=== PATIENT | male | born 1955 | race Caucasian/White ===

== ENCOUNTER 2019-04-07 13:39 | Observation (INO) ==
--- NOTE | 2019-04-07 14:58 | Emergency Department Note ---
Disposition Clinical Impression: Left flank pain, Hypertensive emergency Hypertension Qualifiers: Hypertension type: unspecified Qualified Code(s): I10 - Essential (primary) hypertension Nausea and vomiting Qualifiers: Vomiting type: unspecified Vomiting Intractability: unspecified Qualified Code(s): R11.2 - Nausea with vomiting, unspecified Headache Qualifiers: Headache type: unspecified Headache chronicity pattern: unspecified pattern Intractability: not intractable Qualified Code(s): R51 - Headache Disposition: Admitted As Inpatient Referrals: NONE,PCP [Non-Partnered Physician] - Forms: ED Satisfaction Letter, Work/School Release Time of Disposition: 16:38 General Adult HPI - General Chief complaint: ED Abdominal Pain Stated complaint: vomiting,high blood pressure Time Seen by Provider: 04/07/19 14:38 Source: patient Mode of arrival: private vehicle Limitations: no limitations Nursing Notes Reviewed: Yes Vital Signs Reviewed: Yes - History of Present Illness HPI Narrative: Patient is a 64 year old male with PMHx including hypertension, type 2 diabetes mellitus insulin-dependent, presenting with chief complaint of elevated blood pressures, vomiting. The patient states for the past 2 weeks, he complains of left flank pain that is constant and sharp. Ibuprofen helps the pain somewhat. Pain worsens when he ambulates and moves around his left leg. He denies any dysuria, hematuria, abnormal bowel movements. He states his blood pressures are uncontrolled. 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 Last week, he went to [facility] for evaluation of his symptoms. He states they noted that he had blood in his urine, and they are unsure if he had a x-ray or CT done. They state it showed possible cyst on his left kidney and liver lesion. They were set up with a specialist however they state it was a training program and they were unable to get a hold of anyone. Patient states symptoms continue and this morning, at breakfast, he complains of a generalized pounding headache, had 2 episodes of nausea and nonbilious nonbloody emesis. He states he was feeling unwell. Denies any chest pain, shortness of breath, fevers or chills. He does complain of shortness of breath with exertion at times. He denies unilateral weakness or numbness, vision changes, slurred speech, confusion. At this time, the patient still complains of left flank pain. He states his nausea is resolved. His headache is improved. Pain Scale: 5 - Related Data Allergies Allergy/AdvReac Type Severity Reaction Status Date / Time No Known Allergies Allergy Verified 02/20/18 18:37 All systems ED: reviewed and negative except as stated. Review of Systems: As Per HPI Constitutional: Denies: fever, chills Eyes: Denies: vision change Cardiovascular: Denies: chest pain, palpitations Respiratory: Reports: dyspnea Gastrointestinal: Reports: abdominal pain, nausea, vomiting. Denies: diarrhea Genitourinary: Denies: dysuria, hematuria Musculoskeletal: Reports: back pain Neurological: Reports: headache. Denies: weakness, numbness Past Medical History - Past Medical History Attestation: Yes The following information was validated with the patient. Source: patient Medical history: Reports: diabetes, hyperlipidemia, hypertension Psychiatric history: Reports: no psych history - Social History Smoking Status: Former smoker Smokeless Tobacco Status: No Alcohol use: Reports: rarely Drug use: Reports: none Physical Exam - General Limitations: no limitations General appearance: alert, in no apparent distress - Head Head exam: atraumatic, normocephalic - Eye Eye exam: Present: normal appearance, PERRL, EOMI. Absent: nystagmus - ENT ENT exam: normal exam, normal oropharynx - Neck Neck exam: Present: normal inspection, trachea midline - Chest Chest inspection: Present: normal inspection, symmetric chest wall rise - Respiratory Respiratory exam: Present: normal lung sounds bilaterally. Absent: respiratory distress, wheezes - Cardiovascular Cardiovascular exam: Present: regular rate, normal rhythm, normal heart sounds, other (bilateral radial pulses equal) - Abdominal Exam Abdominal exam: Present: soft, Non-Tender. Absent: distention - Extremities Exam Extremities exam: Present: normal capillary refill. Absent: pedal edema, calf tenderness - Back Exam Back exam: Present: CVA tenderness (L) - Neurological Exam Neurological exam: Present: alert, oriented X3, CN II-XII intact. Absent: motor sensory deficit - Expanded Neurological Exam Speech: Present: fluid speech Cerebellar function: finger to nose: Normal Motor strength - LUE: 5/5 Motor strength - RUE: 5/5 Motor strength - LLE: 5/5 Motor strength - RLE: 5/5 Upper motor neuron exam: briana neglect: Absent bilaterally, pronator drift: Absent bilaterally Sensory exam upper extremity: light touch: Normal Sensory exam lower extremity: light touch: Normal - Psychiatric Psychiatric exam: Present: normal affect, normal mood - Skin Skin exam: Present: warm, dry. Absent: diaphoresis, pallor Course Vital Signs Temperature 98.2 F 04/07/19 13:50 Pulse Rate 68 04/07/19 13:50 Respiratory Rate 16 04/07/19 13:50 Blood Pressure 218/101 04/07/19 13:50 O2 Sat by Pulse Oximetry 95 04/07/19 13:50 Temperature 98.2 F 04/07/19 14:48 Pulse Rate 68 04/07/19 16:05 Respiratory Rate 16 04/07/19 16:05 Blood Pressure 167/84 04/07/19 16:05 O2 Sat by Pulse Oximetry 96 04/07/19 16:05 Oxygen Delivery Oxygen Delivery Room Air Medical Decision Making - MDM Narrative Medical decision making narrative: Patient is presenting with a 2 week history of left flank pain that is reproducible to palpation worsens with ambulation when he elevates his left leg. He does have significantly elevated blood pressures. He had 2 episodes of nonbilious nonbloody emesis and was not feeling well this morning. Denies chest pain or shortness of breath. He does have some shortness of breath with exertion which is new for him. We will obtain CBC, BMP, hepatic panel, t roponin, urinalysis. We will check chest x-ray. We will also obtain a CT abdomen and pelvis without IV or oral contrast to evaluate for any kidney stones. There was a reported history of a cyst on his kidney and liver at an outside facility. Family does not want to wait to obtain facilities and would like to repeat the CT scan as they are unsure if the patient had a CT or x-ray done. We will also give the patient hydralazine 10 mg IV as his blood pressures are significantly elevated. Will also obtain CT head without contrast as patient had headache and vomiting with the elevated blood pressures. 15:50 Labs and imaging reviewed. No acute intracranial abnormality, no acute abdominal abnormality. We will give the patient a lidocaine patch for his left low back pain and morphine for his headache. Headache could be related to the pain and elevated blood pressures and elevated blood pressures could be secondary to the pain. However he still is uncontrolled with blood pressures greater than 200 over 100s. We will admit the patient for further blood pressure management and symptomatic hypertension. No evidence of end organ ischemia. Hospitalist paged for admission. 16:[address] Santiago, hospitalist accepts admission for hypertensive emergency - Medical Records Medical records reviewed: Yes I reviewed the patient's medical records. - Lab Data Lab results reviewed: Yes I reviewed the patient's lab results. Result diagrams: 04/07/19 14:55 04/07/19 14:55 Lab Results 04/07/19 04/07/19 04/07/19 Range/Units 14:55 14:55 15:00 WBC 8.7 (4.3-11.1) K/mcL RBC 5.79 H (4.19-5.50) M/mcL Hgb 16.5 (12.9-16.9) g/dL Hct 49.9 (37.5-50.1) % MCV 86.2 (83.0-100.0) fL MCH 28.5 (28.0-33.3) pg MCHC 33.1 (31.6-35.5) g/dL RDW 12.9 (11.5-14.5) % Plt Count 284 (140-400) K/mcL MPV 9.5 (9.4-12.4) fL Immature Gran % 0.2 (0-4) % Seg Neutrophils % 71.1 % Lymphocytes % 20.6 % Monocytes % 5.7 % Eosinophils % 1.8 % Basophils % 0.6 % Neutrophils # 6.2 (1.6-8.9) K/mcL Lymphocytes # 1.8 (0.6-4.6) K/mcL Monocytes # 0.5 (0.0-1.3) K/mcL Eosinophils # 0.2 (0.0-0.6) K/mcL Basophils # 0.1 (0.0-0.2) K/mcL Sodium 139 (136-145) mEq/L Potassium 3.7 (3.5-5.1) mEq/L Chloride 106 (98-107) mEq/L Carbon Dioxide 27 (23-29) mEq/L BUN 16 (8-23) mg/dL Creatinine 0.93 (0.70-1.30) mg/dL Est GFR ( Amer) > 60 (> 60) Est GFR (Non-Af Amer) > 60 (> 60) BUN/Creatinine Ratio 17 (6-26) Glucose 105 (70-105) mg/dL Calculated Osmolality 290 (280-300) Calcium 9.3 (8.6-10.3) mg/dL Total Bilirubin 0.8 (0.3-1.0) mg/dL Direct Bilirubin 0.2 (0.0-0.2) mg/dL Indirect Bilirubin 0.6 (0.0-1.2) mg/dL AST 14 (13-39) Units/L ALT 17 (7-52) Units/L Alkaline Phosphatase 70 (34-104) Units/L Troponin I < 0.03 (< 0.04) ng/mL Serum Total Protein 7.4 (6.4-8.9) g/dL Albumin 4.3 (3.5-5.7) g/dL Globulin 3.1 (2.4-3.5) g/dL Albumin/Globulin Ratio 1.4 (1.1-2.2) Lipase 31 (11-82) Units/L Urine Color Yellow (Yellow) Urine Clarity Clear (Clear) Urine pH 5.5 (5.0-8.0) pH Units Ur Specific [place] 1.027 H (1.010-1.025) Urine Protein 30 H (Neg-Trace) mg/dL Urine Glucose (UA) Normal (Normal) mg/dL Urine Ketones Negative (Negative) mg/dL Urine Blood Negative (Negative) Urine Nitrite Negative (Negative) Urine Bilirubin Negative (Negative) Urine Urobilinogen Normal (Normal) mg/dL Ur Leukocyte Esterase Negative (Negative) Urine Microscopic RBC 0-3 (0-3) per hpf Urine Microscopic WBC 0-3 (0-3) per hpf Ur Squamous Epith Cells Many H (None-Few) per lpf Urine Bacteria None Seen (None-Few) per hpf Hyaline Casts None Seen (None-Few) per lpf Ur Culture Indicated? NO (NO) - Radiology Data Radiology results reviewed: Yes I reviewed the patient's radiology results. Abdomen/Pelvis CT 04/07/19 14:53 IMPRESSION: No acute process demonstrated D/ / Kranthi Cook MD / Kranthi Cook MD Interpreting Provider: Kranthi Cook MD Chest X-Ray 04/07/19 14:54 IMPRESSION: No acute process. D/ / Eb Solis MD / Eb Solis MD Interpreting Provider: Eb Solis MD Head CT 04/07/19 15:03 IMPRESSION: No acute intracranial abnormality. Extensive chronic small vessel disease. D/ / Teddy Mazariegos MD / Teddy Mazariegos MD Interpreting Provider: Teddy Mazariegos MD - EKG Data EKG #1 EKG attestation: Yes I reviewed and interpreted this EKG. EKG results narrative: EKG obtained at 1450 shows sinus rhythm with heart rate 66, AR interval 170, QRS duration 84, QTC 417, no ST elevation or depression.
[2019-04-07 15:15] LABS: Basophils # 0.1 K/mcL (0.0-0.2); Basophils % 0.6 %; Eosinophils # 0.2 K/mcL (0.0-0.6); Eosinophils % 1.8 %; Hematocrit 49.9 % (37.5-50.1); Hemoglobin 16.5 g/dL (12.9-16.9); Immature Granulocytes % 0.2 % (0-4); Lymphocytes # 1.8 K/mcL (0.6-4.6); Lymphocytes % 20.6 %; Mean Corpuscular HGB Conc 33.1 g/dL (31.6-35.5); Mean Corpuscular Hemoglobin 28.5 pg (28.0-33.3); Mean Corpuscular Volume 86.2 fL (83.0-100.0); Mean Platelet Volume 9.5 fL (9.4-12.4); Monocytes # 0.5 K/mcL (0.0-1.3); Monocytes % 5.7 %; Neutrophils # 6.2 K/mcL (1.6-8.9); Platelet Count 284 K/mcL (140-400); Red Blood Count 5.79 M/mcL (4.19-5.50); Red Cell Distribution Width 12.9 % (11.5-14.5); Segmented Neutrophils % 71.1 %; White Blood Count 8.7 K/mcL (4.3-11.1)
[2019-04-07 15:26] LABS: Bacteria,Urine None Seen per hpf (None-Few); Bilirubin,Urine Negative (Negative); Blood,Urine Negative (Negative); Clarity,Urine Clear (Clear); Color,Urine Yellow (Yellow); Glucose,Urine (UA) Normal (Normal); Hyaline Casts,Urine None Seen per lpf (None-Few); Ketones,Urine Negative (Negative); Leukocyte Esterase,Urine Negative (Negative); Nitrite,Urine Negative (Negative); PH,Urine 5.5 pH Units (5.0-8.0); Protein,Urine 30 mg/dL (Neg-Trace); RBC,Urine 0-3 per hpf (0-3); Specific Gravity,Urine 1.027 (1.010-1.025); Squamous Epithelial Cell,Urine Many per lpf (None-Few); Urobilinogen,Urine Normal (Normal); WBC,Urine 0-3 per hpf (0-3)
[2019-04-07 15:28] LABS: Alanine Aminotransferase 17 Units/L (7-52); Albumin 4.3 g/dL (3.5-5.7); Albumin/Globulin Ratio 1.4 (1.1-2.2); Alkaline Phosphatase 70 Units/L (34-104); Aspartate Amino Transferase 14 Units/L (13-39); BUN/Creatinine Ratio 17 (6-26); Bilirubin,Direct 0.2 mg/dL (0.0-0.2); Bilirubin,Indirect 0.6 mg/dL (0.0-1.2); Bilirubin,Total 0.8 mg/dL (0.3-1.0); Blood Urea Nitrogen 16 mg/dL (8-23); Calcium 9.3 mg/dL (8.6-10.3); Carbon Dioxide 27 mEq/L (23-29); Chloride 106 mEq/L (98-107); Globulin 3.1 g/dL (2.4-3.5); Glucose 105 mg/dL (70-105); Lipase 31 Units/L (11-82); Osmolality,Calculated 290 (280-300); Potassium 3.7 mEq/L (3.5-5.1); Sodium 139 mEq/L (136-145); Total Protein 7.4 g/dL (6.4-8.9); Troponin I < 0.03 ng/mL (< 0.04); eGFR For African Americans > 60 (> 60); eGFR For Non-African Americans > 60 (> 60)
[2019-04-07] MEDS ORDERED: Morphine Sulfate 2 MG/ML SYRINGE IVP ONE (15:44)
--- NOTE | 2019-04-07 16:00 | Emergency Department Note ---
Disposition Clinical Impression: Left flank pain Hypertension Qualifiers: Hypertension type: unspecified Qualified Code(s): I10 - Essential (primary) hypertension Nausea and vomiting Qualifiers: Vomiting type: unspecified Vomiting Intractability: unspecified Qualified Code(s): R11.2 - Nausea with vomiting, unspecified Headache Qualifiers: Headache type: unspecified Headache chronicity pattern: unspecified pattern Intractability: not intractable Qualified Code(s): R51 - Headache Disposition: Admitted As Inpatient Forms: ED Satisfaction Letter, Work/School Release Time of Disposition: 16:00 General Adult HPI - General Chief complaint: ED Abdominal Pain Stated complaint: vomiting,high blood pressure Time Seen by Provider: 04/07/19 14:38 Source: patient Mode of arrival: private vehicle Limitations: no limitations - History of Present Illness Pain Scale: 5 - Related Data Allergies Allergy/AdvReac Type Severity Reaction Status Date / Time No Known Allergies Allergy Verified 02/20/18 18:37 Constitutional: Denies: fever, chills Eyes: Denies: vision change Cardiovascular: Denies: chest pain, palpitations Respiratory: Reports: dyspnea Gastrointestinal: Reports: abdominal pain, nausea, vomiting. Denies: diarrhea Genitourinary: Denies: dysuria, hematuria Musculoskeletal: Reports: back pain Neurological: Reports: headache. Denies: weakness, numbness Past Medical History - Past Medical History Medical history: Reports: diabetes, hyperlipidemia, hypertension Psychiatric history: Reports: no psych history - Social History Smoking Status: Former smoker Smokeless Tobacco Status: No Alcohol use: Reports: rarely Drug use: Reports: none Physical Exam - General Limitations: no limitations General appearance: alert, in no apparent distress Course Vital Signs Temperature 98.2 F 04/07/19 13:50 Pulse Rate 68 04/07/19 13:50 Respiratory Rate 16 04/07/19 13:50 Blood Pressure 218/101 04/07/19 13:50 O2 Sat by Pulse Oximetry 95 04/07/19 13:50 Temperature 98.2 F 04/07/19 14:48 Pulse Rate 68 04/07/19 14:48 Respiratory Rate 16 04/07/19 14:48 Blood Pressure 196/99 04/07/19 15:44 O2 Sat by Pulse Oximetry 95 04/07/19 14:48 Oxygen Delivery Oxygen Delivery Room Air Medical Decision Making - Lab Data Result diagrams: 04/07/19 14:55 04/07/19 14:55 Lab Results 04/07/19 04/07/19 04/07/19 Range/Units 14:55 14:55 15:00 WBC 8.7 (4.3-11.1) K/mcL RBC 5.79 H (4.19-5.50) M/mcL Hgb 16.5 (12.9-16.9) g/dL Hct 49.9 (37.5-50.1) % MCV 86.2 (83.0-100.0) fL MCH 28.5 (28.0-33.3) pg MCHC 33.1 (31.6-35.5) g/dL RDW 12.9 (11.5-14.5) % Plt Count 284 (140-400) K/mcL MPV 9.5 (9.4-12.4) fL Immature Gran % 0.2 (0-4) % Seg Neutrophils % 71.1 % Lymphocytes % 20.6 % Monocytes % 5.7 % Eosinophils % 1.8 % Basophils % 0.6 % Neutrophils # 6.2 (1.6-8.9) K/mcL Lymphocytes # 1.8 (0.6-4.6) K/mcL Monocytes # 0.5 (0.0-1.3) K/mcL Eosinophils # 0.2 (0.0-0.6) K/mcL Basophils # 0.1 (0.0-0.2) K/mcL Sodium 139 (136-145) mEq/L Potassium 3.7 (3.5-5.1) mEq/L Chloride 106 (98-107) mEq/L Carbon Dioxide 27 (23-29) mEq/L BUN 16 (8-23) mg/dL Creatinine 0.93 (0.70-1.30) mg/dL Est GFR ( Amer) > 60 (> 60) Est GFR (Non-Af Amer) > 60 (> 60) BUN/Creatinine Ratio 17 (6-26) Glucose 105 (70-105) mg/dL Calculated Osmolality 290 (280-300) Calcium 9.3 (8.6-10.3) mg/dL Total Bilirubin 0.8 (0.3-1.0) mg/dL Direct Bilirubin 0.2 (0.0-0.2) mg/dL Indirect Bilirubin 0.6 (0.0-1.2) mg/dL AST 14 (13-39) Units/L ALT 17 (7-52) Units/L Alkaline Phosphatase 70 (34-104) Units/L Troponin I < 0.03 (< 0.04) ng/mL Serum Total Protein 7.4 (6.4-8.9) g/dL Albumin 4.3 (3.5-5.7) g/dL Globulin 3.1 (2.4-3.5) g/dL Albumin/Globulin Ratio 1.4 (1.1-2.2) Lipase 31 (11-82) Units/L Urine Color Yellow (Yellow) Urine Clarity Clear (Clear) Urine pH 5.5 (5.0-8.0) pH Units Ur Specific [place] 1.027 H (1.010-1.025) Urine Protein 30 H (Neg-Trace) mg/dL Urine Glucose (UA) Normal (Normal) mg/dL Urine Ketones Negative (Negative) mg/dL Urine Blood Negative (Negative) Urine Nitrite Negative (Negative) Urine Bilirubin Negative (Negative) Urine Urobilinogen Normal (Normal) mg/dL Ur Leukocyte Esterase Negative (Negative) Urine Microscopic RBC 0-3 (0-3) per hpf Urine Microscopic WBC 0-3 (0-3) per hpf Ur Squamous Epith Cells Many H (None-Few) per lpf Urine Bacteria None Seen (None-Few) per hpf Hyaline Casts None Seen (None-Few) per lpf Ur Culture Indicated? NO (NO) Attestation Statement - Attestation Attestation: I examined this patient and my medical decision-making was reviewed with the Resident Physician. I agree with the documented findings, disposition and treatment plan as described except to the extent set forth below. 64-year-old male since emergency room for concerns for elevated blood pressure as well as left flank pain. CT of the left flank pain for the past couple weeks. Radiates to the left leg. Seems to be more musculoskeletal in nature. No abdominal pain. No urinary issues at this time. Denies hematuria associated with flank pain. He also has had elevated blood pressures greater than 200. This is in turn causing him to have some headaches associated with some nausea. CT head negative. CT abdomen pelvis negative. Patient was given hydralazine fo r the blood pressure as well as some pain medication. Patient will need to be admitted for blood pressure control issues. EKG documentation was done by the resident but reviewed by me and agree with all findings and documentation.
--- NOTE | 2019-04-07 17:18 | Internal Med History&Physical ---
Date of Encounter: 04/07/19 Time of Encounter: 17:18 Internal Medicine - H&P: HPI Chief complaint: headache, vomiting Admitted From: Home Plans for Post Hospital Care: Home History of present illness: Mr. Greene is a 64 year old male with past medical history of diabetes on insulin, hypertension who has not seen her primary care physician's for a long time usually getting his medications refilled through after hours doctors came in with complain of headache when he woke up this morning associated with vomiting. He denied visual symptoms any weakness numbness tingling facial asymmetry difficulty speaking swallowing leg weakness. Denies any chest pain. Did have some difficulty breathing with more than usual exertion. Does have some back pain in left lower back over his iliac crest. Denies any trauma. Previously worried about kidney stones however had CT done which did not show any kidney stones but does demonstrate right-sided kidney cyst. Denies any blood in urine. Denies abdominal pain bowel or bladder difficulties. He does have trace edema is usually which has not increased. Denies any nighttime difficulty breathing. Headache is frontal in nature and behind his eyes. Denies any watering of eyes or redness associated with it. Denies previous similar episodes. He had associated vomiting few episodes along with the headache. Patient was related in ER with labs being mostly unremarkable. Patient had chest x-ray, head CT and abdominal CT. Head CT was unremarkable except chronic changes, chest x-ray was unremarkable, CT abdomen showed right renal cyst, degenerative disc disease. Patient was given 1 dose of hydralazine with blood pressure improved to 160 systolic. Admission was requested for further management. Patient was admitted in ER amble mention his was confirmed. Blood pressure on my evaluation was 190 systolic. He had minimal headache at the time. Denied any chest pain. He could not remember his blood pressure medication except clonidine and lisinopril. He does mention he is compliant with his medications. He takes metformin and insulin for diabetes and chol esterol pill. He could not remember her medications. Relays last A1c was 8. Denies any allergies. CODE STATUS is confirmed as full code. Past Med Surg Social Fam HX - Past Medical History Medical history: diabetes, hyperlipidemia, hypertension Psychiatric history: no psych history - Past Surgical History Additional surgical history: knee surgery - Social History Smoking Status: Former smoker Smokeless Tobacco Status: No Alcohol use: rarely Drug use: none - Additional Family History Additional family history: reviewed and non-contributory Internal Medicine - H&P: Meds Unable To Obtain [Unable to Obtain] 04/07/19 [History] Allergy/AdvReac Type Severity Reaction Status Date / Time No Known Allergies Allergy Verified 02/20/18 18:37 All Systems PM: A 10-system review of systems was performed and is negative for pertinent findings except as documented above in the HPI. - Constitutional Vitals: Temp Pulse Resp BP Pulse Ox 98.2 F 68 16 167/84 96 04/07/19 14:48 04/07/19 16:05 04/07/19 16:05 04/07/19 16:05 04/07/19 16:05 Exam: Constitutional: Vitals as noted. Conversant. No Apparent Distress. obese, anxious Eyes : Sclera white, conjunctiva clear, no lid lag, PEARLA. ENT : Grossly normal hearing. Oropharyngeal exam unremarkable. Moist mucus membranes. No JVD, no cervical lymphadenopathy. no thyromegaly or mass. Respiratory : Clear to auscultation bilaterally. No accessory muscle use, rales, rhonchi or wheezes Cardiovascular : RRR, +S1, +S2. no murmur, gallop, rubs. No chest wall tender ness GI/Abdominal : Soft, Non-tender, Non-distended, normal bowel sounds, soft, no peritoneal signs. no orgenomegaly or mass appreciated. no hernia. Musculoskeletal: contracture on rt hand. trace edema or cyanosis. pulses palpable and symmetrical in UE/LE. no calf tenderness. mild tenderness over lt post iliac crest Neurological: AO X3, CN II-XII grossly intact, grossly normal motor and sensory exam. Skin: No skin rash, lesions or ulcers noted. Pych: anxious Internal Med - H&P Results - Labs CBC & Chem 7: 04/07/19 14:55 04/07/19 14:55 Labs: Short CBC 04/07/19 Range/Units 14:55 WBC 8.7 (4.3-11.1) K/mcL Hgb 16.5 (12.9-16.9) g/dL Hct 49.9 (37.5-50.1) % Plt Count 284 (140-400) K/mcL Neutrophils # 6.2 (1.6-8.9) K/mcL BMP 04/07/19 14:55 Sodium 139 Potassium 3.7 Chloride 106 Carbon Dioxide 27 BUN 16 Creatinine 0.93 Glucose 105 Calcium 9.3 Cardiac Enzymes 04/07/19 Range/Units 14:55 Troponin I < 0.03 (< 0.04) ng/mL Liver Function 04/07/19 Range/Units 14:55 Total Bilirubin 0.8 (0.3-1.0) mg/dL Direct Bilirubin 0.2 (0.0-0.2) mg/dL AST 14 (13-39) Units/L ALT 17 (7-52) Units/L Alkaline Phosphatase 70 (34-104) Units/L Albumin 4.3 (3.5-5.7) g/dL Urine 04/07/19 Range/Units 15:00 Urine Color Yellow (Yellow) Urine Clarity Clear (Clear) Urine pH 5.5 (5.0-8.0) pH Units Ur Specific [place] 1.027 H (1.010-1.025) Urine Protein 30 H (Neg-Trace) mg/dL Urine Glucose (UA) Normal (Normal) mg/dL - EKG Data -: EKG Interpreted by Myself EKG shows normal: sinus rhythm Rate: normal - Impressions ITS Impressions Abdomen/Pelvis CT 04/07/19 14:53 IMPRESSION: No acute process demonstrated D/ / Kranthi Cook MD / Kranthi Cook MD Interpreting Provider: Kranthi Cook MD Chest X-Ray 04/07/19 14:54 IMPRESSION: No acute process. D/ / Eb Solis MD / Eb Solis MD Interpreting Provider: Eb Solis MD Head CT 04/07/19 15:03 IMPRESSION: No acute intracranial abnormality. Extensive chronic small vessel disease. D/ / Teddy Mazariegos MD / Teddy Mazariegos MD Interpreting Provider: Teddy Mazariegos MD - Assessment and Plan (1) Hypertensive urgency Current Visit: Yes Status: Acute Assessment and plan: Headache possibly due to elevated blood pressure. Head CT unremarkable. Slightly improved after hydralazine. EKG without any ischemic changes. Troponin unremarkable. Denies any chest pain. We will confirm home medications. Continue hydralazine 10 every 6 when necessary for SBP more than 160. Will resume lisinopril 5 mg for now. We will likely DC clonidine on discharge. (2) Headache Current Visit: Yes Status: Acute Assessment and plan: Improved now. Continue blood pressure management as above. Qualifiers: Headache type: tension-type Headache chronicity pattern: unspecified pattern Intractability: not intractable Qualified Code(s): G44.209 - Tension-type headache, unspecified, not intractable (3) Hypertension Current Visit: Yes Status: Acute Assessment and plan: As above. Qualifiers: Hypertension type: essential hypertension Qualified Code(s): I10 - Essential (primary) hypertension (4) Left flank pain Current Visit: Yes Status: Acute Assessment and plan: No history of trauma. Abdominal CT unremarkable. Appears to be musculoskeletal. Continue Lidoderm patch. - Time Spent With Patient Total time spent is greater than 50% in coordination of care (as documented) at patient's floor/unit and/or counseling patient:
[2019-04-07] MEDS ORDERED: Ondansetron 4 MG/2 ML VIAL IVP ONE (19:24)
[2019-04-07] MEDS: Acetaminophen 325 MG TABLET PO PRN (20:19)
--- NOTE | 2019-04-07 23:34 | Event Note ---
Date of Encounter: 04/07/19 Time of Encounter: 20:00 Notified by nurse of patient having an episode where she reports the patient slumped over in bed and did not respond to her lasting only seconds. Per nurse patient was immediately back to baseline after episode. Vitals stable and blood pressure improved from initial presentation. On telemetry during time of event but no arrythmia or alarms listed. Assessed patient at bedside. Patient and family state he had a similar episode around 2 months ago but they did not seek any evaluation. Had CT of head on admission. Will order echocardiogram, carotid dopplers, and orthostatic vitals. Continue telemetry and nurse to notify of any changes.
[2019-04-08] MEDS: Acetaminophen 325 MG TABLET PO PRN ×2 (04:48→09:48)
[2019-04-08] MEDS ORDERED: Perflutren Lipid Microsphere 1.3 ML in 0.9 % Sodium Chloride 8.7 ML IVP ONE (09:07)
[2019-04-08] MEDS ORDERED: Perflutren Lipid Microsphere 2 ML VIAL ONE (09:11)
[2019-04-08] MEDS: Lisinopril 20 MG TABLET PO SCH (09:45)
[2019-04-08] MEDS: amLODIPine 5 MG TABLET PO SCH (09:45)
[2019-04-08] MEDS ORDERED: cloNIDine HCl 0.1 MG TABLET PO ONE (09:56)
[2019-04-08] MEDS ORDERED: Ondansetron 4 MG/2 ML VIAL IVP PRN (10:23)
[2019-04-08] MEDS ORDERED: cloNIDine HCl 0.1 MG TABLET PO PRN (12:24)
--- NOTE | 2019-04-08 12:28 | Internal Med Progress Note ---
Hospitalist Progress Note - Encounter Date of Encounter: 04/08/19 Time of Encounter: 10:00 - Subjective Interval History: Pt was seen and examined at bed side today. He still have headaches. He denied any CP / SOB. His BP still uncontrolled in 200's now. - Exam Vitals: Temp Pulse Resp BP Pulse Ox 98.4 F 78 20 176/84 95 04/08/19 11:19 04/08/19 11:19 04/08/19 11:19 04/08/19 11:19 04/08/19 11:19 Exam: Gen: Alert, awake, Oriented to time,place and person Chest: Diminished breath sounds B/L, No wheezing, No crackles, No rales Heart: S1S2+ RRR No murmurs Abd: Soft, NT, BS +, No organomegaly Ext: No edema, pulses are palpable, No calf tenderness Neuro : No acute focal neuro deficits noticed Skin: No rash. - Assessment and Plan (1) Hypertensive urgency Current Visit: Yes Status: Acute Assessment and Plan: This morning his BP was so high in 200's He had vomitings with IV hydralazine so held Hydralazine Started him on Metoprolol 50mg BID , Norvasc 10mg and Lisinopril 20 mg daily. Also gave him Clonidine 0.1mg PRN.. His BP now better with in 170's cont on tele His CT of Head did not show any acute ICH His Echo showed LVEF 55-60%, Moderate LV hypertrophy (2) Headache Current Visit: Yes Status: Acute Assessment and Plan: Due to uncontrolled BP cont supportive care (3) Left flank pain Current Visit: Yes Status: Acute Assessment and Plan: resolved cont Lidoderm - Time Spent with Patient Total time spent is greater than 50% in coordination of care (as documented) at patient's floor/unit and/or counseling patient: Internal Medicine: Result - Labs CBC & Chem 7: 04/07/19 14:55 04/07/19 14:55 Labs: Short CBC 04/07/19 Range/Units 14:55 WBC 8.7 (4.3-11.1) K/mcL Hgb 16.5 (12.9-16.9) g/dL Hct 49.9 (37.5-50.1) % Plt Count 284 (140-400) K/mcL Neutrophils # 6.2 (1.6-8.9) K/mcL BMP 04/07/19 14:55 Sodium 139 Potassium 3.7 Chloride 106 Carbon Dioxide 27 BUN 16 Creatinine 0.93 Glucose 105 Calcium 9.3 Cardiac Enzymes 04/07/19 Range/Units 14:55 Troponin I < 0.03 (< 0.04) ng/mL Liver Function 04/07/19 Range/Units 14:55 Total Bilirubin 0.8 (0.3-1.0) mg/dL Direct Bilirubin 0.2 (0.0-0.2) mg/dL AST 14 (13-39) Units/L ALT 17 (7-52) Units/L Alkaline Phosphatase 70 (34-104) Units/L Albumin 4.3 (3.5-5.7) g/dL Urine 04/07/19 Range/Units 15:00 Urine Color Yellow (Yellow) Urine Clarity Clear (Clear) Urine pH 5.5 (5.0-8.0) pH Units Ur Specific [place] 1.027 H (1.010-1.025) Urine Protein 30 H (Neg-Trace) mg/dL Urine Glucose (UA) Normal (Normal) mg/dL - Impressions Impressions Abdomen/Pelvis CT 04/07/19 14:53 IMPRESSION: No acute process demonstrated D/ / Kranthi Cook MD / Kranthi Cook MD Interpreting Provider: Kranthi Cook MD Chest X-Ray 04/07/19 14:54 IMPRESSION: No acute process. D/ / Eb Solis MD / Eb Solis MD Interpreting Provider: Eb Solis MD Head CT 04/07/19 15:03 IMPRESSION: No acute intracranial abnormality. Extensive chronic small vessel disease. D/ / Teddy Mazariegos MD / Teddy Mazariegos MD Interpreting Provider: Teddy Mazariegos MD Echocardiogram 04/08/19 23:23 Impressions: LVEF 55-60%. Moderate concentric left ventricular hypertrophy. Moderate left ventricular diastolic dysfunction. The right ventriclular size was not well measured but appeared grossly normal in function No evidence of PFO with agitated saline contrast. Mild aortic regurgitation. No evidence of pulmonary hypertension. Left Ventricular Wall Motion: Rest Echo Findings All wall segments showed normal motion. Findings: Study Quality * Technically adequate exam. ECG Findings * Normal sinus rhythm. Left Ventricle * LVEF 55-60%. * Normal LV chamber size. * Moderate concentric left ventricular hypertrophy. * Moderate left ventricular diastolic dysfunction. Right Ventricle * The right ventriclular size was not well measured but appeared grossly normal in function Left Atrium * Normal left atrial size. Right Atrium * Normal right atrial size. Interatrial Septum * No evidence of PFO with agitated saline contrast. Aortic Valve * Trileaflet aortic valve. * Mild aortic regurgitation. * No aortic stenosis. * Normal aortic valve structure. Mitral Valve * Normal mitral valve structure. * No mitral regurgitation. * No mitral stenosis. Tricuspid Valve * Trace tricuspid regurgitation. * No evidence of pulmonary hypertension. * No tricuspid stenosis. * Normal tricuspid valve structure. Pulmonic Valve * Pulmonic valve not well visualized. Aorta * Normally sized aortic root. Pericardium * The pericardium appears normal. IVC * Normal IVC dimensions and inspiratory collapse. Pulmonary Artery * Normal visualized portions of the main pulmonary artery. Consult Discharge Plan - Plan Referrals: NONE,PCP [Primary Care Provider] - (2) Headache Qualifiers: Headache type: tension-type Headache chronicity pattern: unspecified pattern Intractability: not intractable Qualified Code(s): G44.209 - Tension-type headache, unspecified, not intractable
--- NOTE | 2019-04-08 16:25 | Electrocardiograph Report ---
[address] [address] Test Date: 2019-04-07 Pat Name: Kota Greene Department: [id number] Room: 3B23 Gender: M Police Sergeant: : 1955 Requested By: Suzy Montelongo Order Number: [id number] Reading MD: Peter Riso Measurements Intervals Boyd Rate: 69 P: 51 CA: 170 QRS: 86 QRSD: 88 T: 35 QT: 392 QTc: 420 Interpretive Statements Sinus rhythm Electronically Signed On 04-08-2019 16:23:46 EDT by Peter Rios
[2019-04-09 05:34] LABS: Hematocrit 48.7 % (37.5-50.1); Hemoglobin 15.7 g/dL (12.9-16.9); Mean Corpuscular HGB Conc 32.2 g/dL (31.6-35.5); Mean Corpuscular Hemoglobin 28.3 pg (28.0-33.3); Mean Corpuscular Volume 87.9 fL (83.0-100.0); Mean Platelet Volume 9.6 fL (9.4-12.4); Platelet Count 280 K/mcL (140-400); Red Blood Count 5.54 M/mcL (4.19-5.50); Red Cell Distribution Width 13.4 % (11.5-14.5); White Blood Count 7.9 K/mcL (4.3-11.1)
[2019-04-09 05:49] LABS: BUN/Creatinine Ratio 20 (6-26); Blood Urea Nitrogen 19 mg/dL (8-23); Calcium 8.9 mg/dL (8.6-10.3); Carbon Dioxide 28 mEq/L (23-29); Chloride 102 mEq/L (98-107); Glucose 195 mg/dL (70-105); Osmolality,Calculated 298 (280-300); Potassium 3.8 mEq/L (3.5-5.1); Sodium 140 mEq/L (136-145); eGFR For African Americans > 60 (> 60); eGFR For Non-African Americans > 60 (> 60)
[2019-04-09 07:19] VITALS: BP 161/89
[2019-04-09] MEDS: amLODIPine 5 MG TABLET PO SCH (07:50)
[2019-04-09] MEDS: Lisinopril 20 MG TABLET PO SCH (07:51)
--- NOTE | 2019-04-09 10:42 | Discharge Summary ---
- NOTES TO OUTPATIENT PROVIDER Notes to Outpatient Provider: f/u with PCP in one week. Date of Encounter: 04/09/19 Time of Encounter: 10:38 - Discharge Diagnosis (1) Hypertensive urgency Priority: Primary Status: Acute (2) Headache Priority: Primary Status: Acute Qualifiers: Headache type: tension-type Headache chronicity pattern: unspecified pattern Intractability: not intractable Qualified Code(s): G44.209 - Tension-type headache, unspecified, not intractable (3) Left flank pain Priority: Secondary Status: Acute Hospital course: Mr. Greene is a 64 year old male with past medical history of diabetes on insulin, hypertension and HLD who has not seen her primary care physician's for a long time usually getting his medications refilled through after hours doctors came in with complain of headache associated with vomiting. He denied visual symptoms any weakness numbness tingling facial asymmetry difficulty speaking swallowing leg weakness. Denies any chest pain. He did c/o some back pain in left lower back over his iliac crest. In the ER Head CT was unremarkable except chronic changes, chest x-ray was unremarkable, CT abdomen showed right renal cyst, degenerative disc disease. He was admitted in the hospital and placed him on manager monitoring. For his HTN urgency / uncontrolled HTN due to medication non compliance he was started on Lisinopril, Metoprolol and Norvasc. His BP was still fairly controlled so given him Clonidine 0.1mg PO BID on PRN basis. Now his BP little better and his headache resolved. When I reviewed his home medications he was taking Losartan and HCTZ. So I stopped Lisinopril and gave him Rx for above medications including Losartan and HCTZ. Also made an appt with [facility]. - Time Spent with Patient Total time spent providing and/or coordinating discharge services: - Discharge Medications Prescriptions: New Amlodipine Besylate 10 mg PO DAILY #30 tablet cloNIDine HCl [CloNIDine HCl] 0.1 mg PO BID PRN #30 tablet PRN Reason: Hypertension Metoprolol [Lopressor] 50 mg PO BID #60 tablet Aspirin Enteric Coated [Aspirin EC] 81 mg PO DAILY #30 tablet.dr [place] Pravastatin Sodium [Pravachol] 20 mg PO HS Insulin Glargine,Hum.rec.anlog [Lantus Solostar] 15 unit SQ HS Losartan Potassium [Cozaar] 100 mg PO DAILY #30 tablet Metformin HCl [Glucophage] 1,000 mg PO BID #60 tablet glyBURIDE [GlyBURIDE] 2.5 mg PO BID #60 tablet hydroCHLOROthiazide [Hydrochlorothiazide] 25 mg PO DAILY #30 tablet Home Medications: Amlodipine Besylate 10 mg PO DAILY #30 tablet 04/09/19 [Rx] Aspirin Enteric Coated [Aspirin EC] 81 mg PO DAILY #30 tablet. 04/09/19 [Rx] Insulin Glargine,Hum.rec.anlog [Lantus Solostar] 15 unit SQ HS 04/09/19 [History] Losartan Potassium [Cozaar] 100 mg PO DAILY #30 tablet 04/09/19 [Rx] Metformin HCl [Glucophage] 1,000 mg PO BID #60 tablet 04/09/19 [Rx] Metoprolol [Lopressor] 50 mg PO BID #60 tablet 04/09/19 [Rx] Pravastatin Sodium [Pravachol] 20 mg PO HS 04/09/19 [History] cloNIDine HCl [CloNIDine HCl] 0.1 mg PO BID PRN #30 tablet 04/09/19 [Rx] glyBURIDE [GlyBURIDE] 2.5 mg PO BID #60 tablet 04/09/19 [Rx] hydroCHLOROthiazide [Hydrochlorothiazide] 25 mg PO DAILY #30 tablet 04/09/19 [Rx] Allergies/Adverse Reactions: Allergy/AdvReac Type Severity Reaction Status Date / Time No Known Allergies Allergy Verified 02/20/18 18:37 Date of admission: 04/07/19 16:44 Primary care physician: PCP NONE - Constitutional Vitals: Temp Pulse Resp BP Pulse Ox 99.0 F 62 16 161/89 96 04/09/19 07:18 04/09/19 07:18 04/09/19 07:18 04/09/19 07:18 04/09/19 07:18 General appearance: Present: cooperative, A&O X 3, no acute distress, answers questions appropriately Exam: Gen: Alert, awake, Oriented to time,place and person Chest: Diminished breath sounds B/L, No wheezing, No crackles, No rales Heart: S1S2+ RRR No murmurs Abd: Soft, NT, BS +, No organomegaly Ext: No edema, pulses are palpable, No calf tenderness Neuro : No acute focal neuro deficits noticed Skin: No rash. - Patient Status Disposition: Home, Self-Care Condition: Good Overall status at discharge: patient is back to baseline - Discharge Instructions Follow Up With: NONE,PCP [Primary Care Provider] - - Diet and Activity Activity: increase activity as tolerated Diet: low salt diet
== END 2019-04-09 11:20 | disposition home or self-care (01) ==
LOC: 3BNU 13:39 → EMEROOARM 13:39 → SUATTDRO 16:44 → 3BNU 18:06
PROVIDERS: ADMIT Internal Medicine Nephrology; ATTEND Family Medicine